=== PATIENT | female | born 1990 | race Caucasian/White ===

== ENCOUNTER 2016-05-30 23:09 | Emergency (ER) | payer OTHER ==
[~2016-05-30] VITALS: Ht 149.9 cm; Wt 90.7 kg
[~2016-05-30 23:09] MED LIST: APAP/CODEINE ELI5 M1 OR; APAP650 PO; AZITHROMYCIN 2250 MG PO; BACTRIM DS TAB1 EACH PO; DOXYCYCLINE 10100 M1 PO; FEROSUL325 MG PO; FLEXERIL PO; IMURAN 50MG TAB50 M1; IMURAN 50MG TAB50 M1 PO; NOHOMEMEDICATIONS; NORCO 5-325 TA1 EACH PO; NYQUIL; PENICILLIN V P500 MG PO; PERCOCET 5-3251 EACH PO; PHENERGAN 25 MG25 M1 PO; PHENERGAN-CODE120 ML PO; PREDNISONE 20 M20 MG PO; PRENAPLUS TABL1 EACH PO; PRILOSEC 10MG C10 MG PO; PRILOSEC 20 MG20 MG PO; PROAIR HFA8.5 GM IH; PROGRAF5 MG PO; PROMETHAZINE-C120 ML PO; PROVENTIL HFA6.7 G1 INH; PYRIDIUM200 MG PO; SUDAFED 12 HOU120 MG PO; TESSALON PERLE100 MG PO; TESSALON200 MG PO; VENTOLIN HFA 1818 GM INH; VENTOLIN17 GM INH; ZOFRAN ODT4 MG PO; ZPAK PO
[2016-05-30 23:43] LABS: ABSOLUTE NEUTROPHILS 4.6 thou/uL (1.4-8.2); BASOPHILS 0.5 % (0.0-2.0); EOSINOPHILS 0.4 % (0.0-3.0); HEMATOCRIT 43.4 % (37.0-47.0); HEMOGLOBIN 15.2 gm/dL (12.0-15.0); LYMPHOCYTES 23.8 % (24.0-44.0); MCH 32.5 pg (26.0-34.0); MCV 92.8 fL (80.0-100.0); PLATELET COUNT 237 thou/uL (150-400); POLYS 65.3 % (36.0-66.0); RBC 4.67 mil/uL (4.20-5.00); RDW 12.7 % (10.5-14.5); WBC 7.1 thou/uL (4.0-11.0)
[2016-05-30 23:51] LABS: MANUAL DIFF NO
[2016-05-30 23:53] LABS: ANION GAP 16 mmol/L (7-16); BUN 26 mg/dL (7-18); CALCIUM 9.1 mg/dL (8.5-10.1); CHLORIDE 100 mmol/L (98-107); CO2 20 mmol/L (21-32); CREATININE 1.8 mg/dL (0.6-1.3); GLUCOSE 100 mg/dL (70-99); SODIUM 136 mmol/L (136-145)
[2016-05-31] LABS: ALBUMIN 3.2 g/dL (3.4-5.0); ALKALINE PHOSPHATASE 112 U/L (46-116); DIRECT BILIRUBIN < 0.1 mg/dL (<0.1-0.3); SGOT 47 U/L (15-37); SGPT 49 U/L (30-65); TOTAL BILIRUBIN 0.3 mg/dL (<0.1-1.0); TOTAL PROTEIN 8.1 g/dL (6.4-8.2)
[2016-05-31] MEDS ORDERED: ONDANSETRON HCL4 M2 PO (00:57)
[2016-05-31 01:04] LABS: URINE BILIRUBIN NEGATIVE (Negative); URINE BLOOD 3+ (Negative); URINE COLOR YELLOW; URINE GLUCOSE-RANDOM* NEGATIVE (Negative); URINE KETONES NEGATIVE (Negative); URINE NITRITE NEGATIVE (Negative); URINE PROTEIN (DIPSTICK) 3+ (Negative); URINE SPECIFIC GRAVITY 1.025 (1.003-1.035); URINE UROBILINOGEN 0.2 E.U./dl (0.2-1.0)
[2016-05-31 01:17] LABS: SQUAMOUS >10 Many /LPF (0-3)
[2016-05-31 01:18] LABS: BACTERIA >30 Many /HPF (None Seen); CASTS None Seen /LPF (None Seen); CRYSTALS None Seen /LPF (None Seen); URINE RBC >20 Many /HPF (0-2); URINE WBC 0-5 Rare /HPF (0-5)
[2016-05-31 01:41] VITALS: BP 112/64
== END 2016-05-31 01:42 | disposition home or self-care (01) ==
LOC: ER 23:09
PROVIDERS: Nurse Practitioner
DX: J06.9 Acute upper respiratory infection, unspecified (principal); R11.2 Nausea with vomiting, unspecified; R19.7 Diarrhea, unspecified; R10.11 Right upper quadrant pain; R50.9 Fever, unspecified; Z88.8 Allergy status to other drugs, medicaments and biological substances; F17.210 Nicotine dependence, cigarettes, uncomplicated; F10.99 Alcohol use, unspecified with unspecified alcohol-induced disorder

== ENCOUNTER 2017-02-13 20:38 | Emergency (ER) | payer OTHER ==
[~2017-02-13] VITALS: Ht 149.9 cm; Wt 83.9 kg
[~2017-02-13 20:38] MED LIST changes: +ONDANSETRON HCL4 M2 PO
[2017-02-13 21:26] LABS: ABSOLUTE NEUTROPHILS 7.4 thou/uL (1.4-8.2); BASOPHILS 0.2 % (0.0-2.0); EOSINOPHILS 1.5 % (0.0-3.0); HEMATOCRIT 42.3 % (37.0-47.0); HEMOGLOBIN 14.7 gm/dL (12.0-15.0); LYMPHOCYTES 16.6 % (24.0-44.0); MCH 31.9 pg (26.0-34.0); MCHC 34.8 g/dL (28.0-37.0); MCV 91.5 fL (80.0-100.0); PLATELET COUNT 236 thou/uL (150-400); POLYS 74.7 % (36.0-66.0); RBC 4.63 mil/uL (4.20-5.00); WBC 9.8 thou/uL (4.0-11.0)
[2017-02-13 21:28] LABS: MANUAL DIFF NO
[2017-02-13 21:30] LABS: URINE BILIRUBIN NEGATIVE (Negative); URINE BLOOD TRACE (Negative); URINE COLOR YELLOW; URINE GLUCOSE-RANDOM* NEGATIVE (Negative); URINE KETONES NEGATIVE (Negative); URINE NITRITE NEGATIVE (Negative); URINE PROTEIN (DIPSTICK) 2+ (Negative); URINE UROBILINOGEN 0.2 E.U./dl (0.2-1.0)
[2017-02-13 21:36] LABS: ANION GAP 11 mmol/L (7-16); BUN 26 mg/dL (7-18); CALCIUM 9.1 mg/dL (8.5-10.1); CHLORIDE 104 mmol/L (98-107); CO2 23 mmol/L (21-32); CREATININE 1.8 mg/dL (0.6-1.0); GLUCOSE 99 mg/dL (74-106); SODIUM 138 mmol/L (136-145)
[2017-02-13 21:41] LABS: BACTERIA 1-9 Few /HPF (None Seen); CASTS None Seen /LPF (None Seen); CRYSTALS None Seen /LPF (None Seen); SQUAMOUS 4-10 Moderate /LPF (0-3); URINE RBC 0-2 Rare /HPF (0-2); URINE WBC 0-5 Rare /HPF (0-5)
[2017-02-13 21:42] LABS: ALBUMIN 3.3 g/dL (3.4-5.0); ALKALINE PHOSPHATASE 122 U/L (46-116); DIRECT BILIRUBIN < 0.1 mg/dL (<0.1-0.3); SGOT 34 U/L (15-37); SGPT 55 U/L (30-65); TOTAL BILIRUBIN 0.3 mg/dL (<0.1-1.0)
[2017-02-13] MEDS ORDERED: OXYCODONE HCL 55 MG PO (23:01)
[2017-02-13] MEDS ORDERED: ONDANSETRON HCL4 M2 PO (23:01)
[2017-02-13 23:51] VITALS: BP 125/83
== END 2017-02-13 23:50 | disposition home or self-care (01) ==
LOC: ER 20:38
PROVIDERS: Emergency Medicine
DX: R10.11 Right upper quadrant pain (principal); F17.210 Nicotine dependence, cigarettes, uncomplicated; Z88.8 Allergy status to other drugs, medicaments and biological substances